=== PATIENT | male | born 1990 | race African-American/Black ===

== ENCOUNTER 2022-09-18 11:19 | Emergency (ER) | payer SELFPAY ==
[~2022-09-18] VITALS: Ht 182.9 cm; Wt 115.2 kg
[2022-09-18 11:19] VITALS: BP 143/83
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
--- NOTE | 2022-09-18 11:56 | DIREP ---
PROCEDURE:CHEST 1 VIEW COMPARISON:None. INDICATIONS:cp FINDINGS: LUNGS/PLEURA:No significant pulmonary parenchymal abnormalities. No effusions. VASCULATURE:Normal. Unremarkable pulmonary vasculature. CARDIAC:Normal. No cardiac silhouette abnormality or cardiomegaly. MEDIASTINUM:Normal. No visible mass or adenopathy. BONES:Normal. No fracture or visible bony lesion. OTHER:Endotracheal tube with tip overlying the mid trachea. Enteric tube with tip off the inferior aspect of the image. CONCLUSION:No acute pulmonary process. Endotracheal and enteric tubes as above. Dictated by: Heather Emery M.D. on 09/18/2022 at 11:54 AM
[2022-09-18 12:09] LABS: BASOPHIL % 0.4 % (0.0-0.2); LYMPHOCYTES # 1.19 10^3/uL1 (1.0-4.8); LYMPHOCYTES % 12.1 % (24.0-44.0); MEAN CORP HGB 28.5 pg (26-34); MONOCYTES # 0.6 10^3/uL (0.3-0.8); NEUTROPHILS % 81.2 % (41.0-85.0); PLATELET COUNT 231 10^3/uL (150-400); RED CELL DISTRIBUTION WIDTH 16.1 % (11.5-14.5)
--- NOTE | 2022-09-18 12:09 | PCM.EKG ---
[facility] Test Date: 2022-09-18 Test Time: 12:00:29 Pat Name: LIAM KEITA [facility]: [id number] Room: Gender: M Clinical Data Associate: sean : 1990 Requested By: JOCYE FLANAGAN Order Number: [id number] Reading MD: Measurements Intervals [place] Rate: 129 P: 72 WV: 143 QRS: -74 QRSD: 86 T: 105 QT: 324 QTc: 475 Interpretive Statements Sinus tachycardia Probable left atrial enlargement LAD, consider left anterior fascicular block Borderline T wave abnormalities Borderline prolonged QT interval Baseline wander in lead(s) V1,V2,V6 No previous ECG available for comparison Please click the below link to view image of tracing.
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
[2022-09-18 12:50] LABS: CARBON DIOXIDE 21.6 mmol/L (20.0-32)
--- NOTE | 2022-09-18 13:09 | NUR ---
[facility] CHECK PEG TUBE RESIDUAL AND IT WAS APPROX 60CC.
[2022-09-18 13:10] VITALS: BP 123/80
--- NOTE | 2022-09-18 13:11 | NUR ---
TRANSFER DOCTOR PANCHITO AND REJI INGRIS SPOKE WITH FAMILY, WANTS PATIENT TRANSFER TO [facility]
--- NOTE | 2022-09-18 13:12 | NUR ---
[facility] EDP ON PHONE WITH [facility] TRANSFER LINE TO DISCUSS NEED OF TRANSFER TO HIGHER LEVEL OF CARE
--- NOTE | 2022-09-18 13:16 | NUR ---
[facility] ACCEPTING [facility] ACCEPTING TO FOR ER TO ER TRANSFER. DR SANTOS ACCEPTING @[id number],RN PT DX PER EDP: TL, HYPOTENSION.
[2022-09-18] MEDS ORDERED: ZOFRAN IV STA (13:21)
[2022-09-18] MEDS ORDERED: SUBLIMAZE IV STA (13:21)
[2022-09-18] MEDS ORDERED: NS 1000ML 1,000 ML ONE (13:24)
[2022-09-18] MEDS ORDERED: ZOFRAN ONE (13:24)
[2022-09-18] MEDS ORDERED: SUBLIMAZE ONE (13:25)
[2022-09-18] MEDS ORDERED: DIPRIVAN 100 ML IV PRN (13:30)
[2022-09-18] MEDS ORDERED: NS 1000ML 1,000 ML IV ONE (13:30)
[2022-09-18] MEDS ORDERED: DIPRIVAN 100 ML IV ONE (13:45)
--- NOTE | 2022-09-18 13:55 | NUR ---
DISPATCH DISPATCH NOTIFIED OF THE NEED FOR A TRANSFER
[2022-09-18 13:58] VITALS: BP 133/69
--- NOTE | 2022-09-18 15:12 | NUR ---
[facility] HERE FOR TRANSFER.
[2022-09-18 15:30] VITALS: BP 129/81
--- NOTE | 2022-09-18 15:54 | NUR ---
REPORT REPORT CALLED TO [facility]
== END 2022-09-18 15:40 | disposition short-term general hospital (02) ==
LOC: EDBD 11:19 → ER 11:19
DX: N17.9 Acute kidney failure, unspecified (principal); I95.9 Hypotension, unspecified; Z20.822 Contact with and (suspected) exposure to COVID-19
CPT/HCPCS: 99285; 96374; 71045; 87426; 96375; 80053; 85025; 82948; 36415; 84484; 87040 ×2; 83605 ×2; 84145; 82553; 83880; 82010; 82550; 85610; 85730; 86140; 93005; 82803; J7030; J2405; J3010; 94002